=== PATIENT | female | born 1955 | race Caucasian/White ===

== ENCOUNTER 2021-03-04 08:43 | Outpatient (CLI) | payer OTHER ==
[2021-03-04 09:29] LABS: Estimated GFR-MDRD - POC Greater than 90
== END 2021-03-04 08:44 | disposition home or self-care (01) ==
LOC: CSHCT 08:43
PROVIDERS: ATTEND Student in an Organized Health Care Education/Training Program
DX: R14.0 Abdominal distension (gaseous) (principal); N83.202 Unspecified ovarian cyst, left side; N83.201 Unspecified ovarian cyst, right side
CPT/HCPCS: 74177; 82565